=== PATIENT | male | born 1945 | race Caucasian/White ===

== ENCOUNTER 2024-05-02 07:31 | Outpatient (CLI) | payer MEDICARE, SELFPAY ==
--- NOTE | ~2024-05-02 | PE_ITS ---
EXAMINATION: PET_PETPSMAST_PT DATE: 05/02/2024 10:00 INDICATION: Prostate cancer TECHNIQUE: 4.679 mCi of Illucix Ga-68([id number]) was administered i.v. Low dose computed jyoti graphy (CT) images were acquired from the base of the brain to the base of the brain to the proximal thighs for attenuation correction and anatomic localization. Positron emission tomography (PET) image s were acquired in the same distribution beginning 82 minutes after injection. Images including fused PET/CT images were reconstructed in axial, coronal, and sagittal planes. Automated exposure control technique was employed. The dose-length product was 1019.54mGy-cm. COMPARISON: None FINDINGS: Head/neck: Typical pattern of symmetric physiologic increased activity in the lacrimal, parotid and submandibula r glands as well as along the mucosa of the nasal and oral cavities, pharynx and hypopharynx. No path ologically enlarged cervical lymphadenopathy or suspicious foci of increased uptake in the visualized head or neck. Chest: Linear and groundglass opacities consistent with atelectasis with associated volume loss in the bilat eral lower lobes. No suspicious pulmonary nodules or pleural effusion. Mild cardiomegaly. Atheroscler otic coronary artery calcification and changes of prior median sternotomy and coronary artery bypass grafting. No pericardial effusion. Thoracic aorta is normal in caliber. No pathologically enlarged or PSMA avid thoracic lymphadenopathy. Abdomen/pelvis/proximal thighs: Physiologic renal accumulation and excretion of activity in the kidneys, bladder and along portions o f ureters. This includes urinary activity within a bladder diverticulum arising from the left posteri or dome of the bladder. Prostatomegaly measuring 5.5 x 3.5 cm. There is a small region with focally i ncreased PSV may uptake in the left posterior aspect of the prostate with maximal severe 3.8 which li maurice represents the site of a reported biopsy-proven primary prostate cancer. Normal degree and sligh tly heterogenous pattern of increased uptake throughout the liver and spleen without radiologic corre late or dominant PSMA avid lesion. The gallbladder, pancreas and bilateral adrenal glands are normal. Moderate uptake scattered throughout the bowels with typical duodenal and proximal jejunal predomina nce and without radiologic correlate, also likely physiologic. Small fat-containing left inguinal her giuliana and changes of prior right inguinal hernia repair. Small fat-containing umbilical hernia. No othe r abnormal foci of increased uptake or pathologically enlarged lymphadenopathy in the abdomen, pelvis or proximal thighs. Musculoskeletal: There is extravasated soft tissue activity at the site of injection at the right hand. Severe cervica l, thoracic and lumbar spondylosis. No suspicious lytic, blastic or abnormally PSA may avid bone lesi ons to suggest metastatic disease. IMPRESSION: 1. Small region of mild increased uptake at the left posterior aspect of the enlarged prostate likely representing the site of a reported biopsy-proven primary prostate cancer. No evident metastatic dis ease. Reviewed, dictated and finalized at location B. [employer] IMPRESSION: 1. Small region of mild increased uptake at the left posterior aspect of the en larged prostate likely representing the site of a reported biopsy-proven primar y prostate cancer. No evident metastatic disease.
== END 2024-05-02 07:32 | disposition home or self-care (01) ==
PROVIDERS: PCP Internal Medicine; Visit Provider Urology
DX: C61 Malignant neoplasm of prostate (principal)
CPT/HCPCS: 78815; A9596